=== PATIENT | male | born 1960 | race Caucasian/White ===

== ENCOUNTER → 2020-04-01 16:39 | Outpatient (CLI) | payer MEDICAID, SELFPAY ==
--- NOTE | 2020-04-01 16:48 | RAD_ITS ---
STUDY: X-RAY - RIGHT KNEE REASON FOR EXAM: Male, 60 years old. CHRONIC KNEE PAIN TECHNIQUE: 2 view(s) of the knee. COMPARISON: None. FINDINGS: Normal visualized distal femur. Focal density of the medial femoral condyle possibly a bony island. Normal visualized proximal tibia and fibula. Normal proximal tibiofibular articulation. Normal medial femorotibial compartment. Normal lateral femorotibial compartment. Normal patellofemoral articulation. The soft tissue structures are unremarkable. RAD/Knee 1 or 2 Views IMPRESSION: Normal x-ray examination of the knee. Electronically Signed: Tramaine Gibson DO at 22:41 EDT Tel [phone], Service support ,
== END ==
PROVIDERS: PCP Physician Assistant; Referring Provider Anesthesiology Pain Medicine; Visit Provider Anesthesiology Pain Medicine
DX: M25.561 Pain in right knee (principal)
CPT/HCPCS: 73560

== ENCOUNTER → 2020-07-09 17:58 | Outpatient (CLI) | payer MEDICAID, SELFPAY ==
[2020-07-01 08:39] VITALS: BMI 28.1
--- NOTE | 2020-07-09 18:01 | MRI_ITS ---
STUDY: MRI RIGHT KNEE REASON FOR EXAM: Medial right knee pain for one year, no specific injury. TECHNIQUE: Standardized fat and water weighted pulse sequences were obtained in all 3 orthogonal planes. COMPARISON: Radiographs 07/01/2020 and 04/01/2020. FINDINGS: Normal medial meniscus. There is a small chondral tear of the posterior mesial medial femoral condyle (T2 coronal image 13; T2 sagittal image 17). Normal medial femoral condyle and tibial plateau. Normal medial collateral ligamentous complex (MCL). Normal distal semimembranosus, gracilis and semitendinosus tendons. Normal lateral meniscus. Normal hyaline cartilage of the lateral femorotibial compartment. Normal lateral femoral condyle and tibial plateau. Normal proximal tibiofibular articulation. Normal lateral collateral (fibular) ligament. Normal popliteus tendon. Normal biceps femoris tendon. Normal anterior cruciate ligament (ACL). Normal posterior cruciate ligament (PCL). Normal congruent patellofemoral articulation. Normal hyaline cartilage of the patellofemoral compartment. The medial patellar retinaculum is obscured by artifact from a small metallic foreign body. Normal visualized quadriceps tendon. Normal patellar tendon. Normal Hoffa''s fat pad. There is a very small joint effusion. There is a popliteal cyst measuring 2.7 cm in length containing two small intra-articular bodies (T2 sagittal image 18). The otherwise visualized osseous structures are unremarkable. MRI/Lower Ext Joint Only (Routine) IMPRESSION: Small chondral tear of the posterior mesial medial femoral condyle. Very small joint effusion. Small popliteal cyst containing intra-articular bodies. Electronically Signed: Christiano Connell MD at 7:48 EST Tel , Service support ,
== END ==
PROVIDERS: PCP Physician Assistant; Referring Provider Orthopaedic Surgery; Visit Provider Orthopaedic Surgery
DX: S83.241A Other tear of medial meniscus, current injury, right knee, initial encounter (principal); M25.561 Pain in right knee
CPT/HCPCS: 73721